=== PATIENT | male | born 1975 | race Caucasian/White ===

== ENCOUNTER 2022-08-17 12:36 | Outpatient (CLI) | payer OTHER, SELFPAY ==
[2022-08-17 10:02] LABS: Albumin* 4.3 g/dL (3.3-5.0); Chloride* 105 mmol/L (96-114); Sodium* 140 mmol/L (135-149)
[2022-08-17 10:03] LABS: Potassium* 4.6 mmol/L (3.6-5.1)
[2022-08-17 10:05] LABS: Alanine Aminotransferase* 28 U/L (4-50); Alkaline Phosphatase* 66 U/L (40-150); Aspartate Amino Transferase* 23 U/L (12-35); Bilirubin Total* 0.5 mg/dL (0.1-1.5); Blood Urea Nitrogen* 23 mg/dL (5-24); Carbon Dioxide* 28 mmol/L (20-32); Creatinine* 0.8 mg/dL (0.5-1.5); Estimated Glomerular Filt Rate 108 ml/min; Glucose* 112 mg/dL (60-115); Total Protein* 6.6 g/dL (6.0-8.3)
[2022-08-17 10:06] LABS: Calcium* 9.5 mg/dL (8.4-10.6); Uric Acid* 9.3 mg/dL (2.2-8.4)
== END 2022-08-17 12:37 | disposition home or self-care (01) ==
PROVIDERS: PCP Surgery; Visit Provider Internal Medicine
DX: E11.9 Type 2 diabetes mellitus without complications (principal); E79.0 Hyperuricemia without signs of inflammatory arthritis and tophaceous disease; E66.01 Morbid (severe) obesity due to excess calories
CPT/HCPCS: 80053; 84550

== ENCOUNTER 2022-11-22 07:48 | Outpatient (CLI) | payer OTHER, SELFPAY ==
[2022-11-22 11:09] LABS: Uric Acid* 7.2 mg/dL (2.2-8.4)
== END 2022-11-22 07:49 | disposition home or self-care (01) ==
LOC: NFLDREF 07:48
PROVIDERS: PCP Internal Medicine; Visit Provider Internal Medicine
DX: E79.0 Hyperuricemia without signs of inflammatory arthritis and tophaceous disease (principal)
CPT/HCPCS: 84550

== ENCOUNTER 2023-05-23 07:40 | Outpatient (CLI) | payer OTHER, SELFPAY | END 2023-05-23 07:41 | disposition home or self-care (01) | LOC: NFLDREF 17:45 | PROVIDERS: PCP Internal Medicine; Referring Provider Internal Medicine; Visit Provider Internal Medicine | DX: E11.9 Type 2 diabetes mellitus without complications (principal); E66.01 Morbid (severe) obesity due to excess calories; I10 Essential (primary) hypertension; E79.0 Hyperuricemia without signs of inflammatory arthritis and tophaceous disease; R20.0 Anesthesia of skin | CPT/HCPCS: 80053; 80061; 82043; 82570; 84550 ==

== ENCOUNTER 2024-06-21 08:15 | Outpatient (RCR) | payer BC, SELFPAY | END 2024-10-19 23:59 | disposition home or self-care (01) | PROVIDERS: PCP Internal Medicine; Visit Provider Physician Assistant Surgical | DX: M54.2 Cervicalgia (principal); M54.12 Radiculopathy, cervical region; Z51.89 Encounter for other specified aftercare | CPT/HCPCS: 97110; 97140; 97162; 97535 ==

== ENCOUNTER 2024-07-03 07:30 | Outpatient (CLI) | payer BC, SELFPAY ==
--- OUTSIDE RECORDS SUMMARY | 2024-07-03 14:23 | XMS_ITS | Clinical Summary ---
Author Organization [facility] Address [place], [place] [address] Care Team Providers Care Store Clerk Checker Name Role Phone MukulAndrewsblanca White Gmitro HANDWRITING EXPERT Unavailable [phone] Unavailable [phone] Leland Cedeno RN Unavailable Allergies No known active allergies Medications Medication Sig Dispensed Refills Start Date End Date Status acetaminophen (TYLENOL EXTRA STRGTH) 500 mg tabletIndications: HNP (herniated nucleus pulposus), lumbar,S/P discectomy for herniated nucleus pulposus,Postopera tive back pain Take 2 tablets by mouth every 8 hours. Max acetaminophen dose: 4000mg in 24 hrs. 60 tablet 12/10/2019 Active omeprazole (PRILOSEC) 20 mg Delayed-Release capsule Take 1 Capsule (20 mg) by mouth once daily before a meal. 03/19/2021 Active medication order composer Vitamin B 12 0 12/29/2021 Active tiZANidine (ZANAFLEX) 4 mg tabletIndications: Chronic low back pain without sciatica, unspecified back pain laterality Take 1 Tablet (4 mg) by mouth every 6 hours if needed for Muscle Spasm. 30 Tablet 2 05/09/2022 Active ibuprofen (ADVIL; MOTRIN) 200 mg tablet Take 1 Tablet (200 mg) by mouth four times daily 6 hours apart. 0 05/09/2022 Active blood-glucose meterIndications:T ype 2 diabetes mellitus without complication, with long-term current use of insulin (HC) Dispense meter, test strips, lancets covered by pt ins. E11.65 NIDDM type II, uncontrolled - Test 4 times/day. Reason: High A1C 1 Each 05/09/2022 Active lancetsIndications :Type 2 diabetes mellitus without complication, with long-term current use of insulin (HC) As directed. Test 4 times per day. 400 Each 3 05/31/2022 Active blood sugar diagnostic (Accu-Chek Guide test strips) stripIndications:T ype 2 diabetes mellitus without complication, with long-term current use of insulin (HC) Dispense item covered by pt ins. E11.9 NIDDM type II - Test 4 times/day. Reason: High A1C 400 Each 3 05/31/2022 Active Eliquis 2.5 mg tabletIndications: Pulmonary embolism, bilateral (HC) TAKE 1 TABLET(2.5 MG) BY MOUTH IN THE MORNING AND IN THE EVENING 120 Tablet 05/24/2023 Active Active Problems Problem Noted Date Diagnosed Date Vitamin D deficiency 12/29/2021 Radiculopathy of lumbar region 10/26/2021 Physical deconditioning 10/14/2021 Eating disorder 10/14/2021 Ascending aorta dilatation 10/05/2021 HTN (hypertension) 10/05/2021 LVH (left ventricular hypertrophy) 10/05/2021 Overview (10/05/2021): Mild 1.3 cm 09/2021 Prediabetes 10/16/2020 History of pulmonary embolism 08/08/2017 Overview (08/08/2017): Bilateral Morbid obesity with BMI of 40.0-44.9, adult 04/2017 Resolved Problems Problem Noted Date Diagnosed Date Resolved Date Weight gain 10/14/2021 10/26/2021 Factor V Leiden mutation 10/05/2021 Urinary retention 12/08/2019 10/26/2021 Frequent headaches 12/08/2019 Lateral epicondylitis of right elbow 08/08/2017 10/26/2021 Immunizations Name Administration Dates Next Due COVID-19 vaccine ([employer] 30mcg/0.3mL) PF, MDV 08/18/2021,01/16/2021,12/26/2020 Influenza, IIV4 08/02/2021,07/09/2020,08/08/2017 Influenza, IIV4 (=>6mos) MDV 07/09/2020 Influenza,CCIIV4 PRESERV FREE 07/09/2020 Tdap 03/19/2021 Family History Medical History Relation Name Comments Rheum arthritis Father Cancer-colon Maternal Grandfather Endometrial cancer Mother Coronary artery disease Other paternal uncle Cancer Paternal Grandfather Coronary artery disease Paternal Grandfather Relation Name Status Comments Father Maternal Grandfather Maternal Grandmother Mother Other paternal uncle Paternal Grandfather Paternal Grandmother Social History Tobacco Use Types Packs/Day Years Used Date Smoking Tobacco: Former Cigarettes Q uit: 2013 Smokeless Tobacco: Never Tobacco Cessation:Counseling Given: Yes Comments:Quit 8 years ago Alcohol Use Standard Drinks/Week Comments No 0 (1 standard drink = 0.6 oz pur e alcohol) PHQ-2 Answer Date Recorded PHQ-2 TOTAL SCORE 0 10/14/2021 Social Connections Answer Date Recorded Frequency of Communication with Friends and Fami ly Not on file 09/24/2021 Financial Resource Strain Answer Date R ecorded Difficulty of Paying Living Expenses Not on file 09/24/2021 Difficulty of Paying Living Expenses Not on file 09/24/2021 Sex and Gender Information Value Date Recorded Sex Assigned at Not on file Gender Identity Not on file Sexual Orientation Not on file Obstetrics History Last Filed Vital Signs Vital Sign Reading Time Taken Comments Blood Pressure 123/90 05/09/2022 1:09 PM CDT Pulse 98 05/09/2022 1:07 PM CDT Temperature 36.6 ??C (97.9 ??F) 10/13/2020 1 0:17 AM LINE APPLIANCE ASSEMBLER Respiratory Rate 16 12/10/2019 8:13 AM CDT Oxygen Saturation 97% 05/09/2022 1:07 PM CDT Inhaled Oxygen Concentration - - Weight 155.9 kg (343 lb 9.6 oz) 05/09/2022 1:07 PM CDT Height 190.5 cm (6' 3) 12/29/2021 10:2 4 AM CDT Body Mass Index 42.95 12/29/2021 10:24 AM CDT Plan of Treatment Health Maintenance Due Date Last Done Comments Depression screening for age 12+ 10/14/2022 10/14/2021, 10/14/2021, 04/08/2021, Additional history exists BMI (ht and wt on same day) for age 18+ 12/29/2022 12/29/2021, 10/14/2021, 08/02/2021, Additional history exists Zoster (shingles) series for age 50+ (1 of 2) 2023 COVID-19 vaccine series ( season) 2024 08/18/2021, 01/16/2021, 12/26/2020 Influenza for age 50-64 06/02/2024 08/02/20 21, 07/09/2020, 07/09/2020, Additional history exists Colonoscopy through age 75 04/08/202604/08, 04/08/2021, 04/08/2021, Additional history exists Lipids for age 45-75 10/26/2026 10/26/2021, 10/09/2020, 03/14/2018 Tetanus booster 03/19/2031 03/19/2021 Tdap Completed 03/19/2021 HIV for age 15-65 Completed 05/09/2022 Hepatitis C screening for age 18-79 Completed 05/09/2022 Pneumococcal series for age 6-64 Aged Out No longer eligible based on patient's age to complete this topic Procedures Procedure Name Priority Date/Time Associated Diagnosis Comments ANTI HIV 1/2 Routine 05/09/2022 2:20 PM CDT Night sweats ANTI HCV Routine 05/09/2022 2:20 PM CDT Need for hepatitis C screening test LIPID PANEL W REFLEX MEASURED LDL Routine 10/26/2021 8:00 AM LINE APPLIANCE ASSEMBLER Morbid obesity with BMI of 40.0-44.9, adult (HC) COLONOSCOPY SCREENING Routine 04/08/2021 10:27 AM CDT History of colon polyps from Last 3 Months or Most Recently Relevant to Health Maintenance Results * ANTI HCV (05/09/2022 2:20 PM CDT) HEPATITIS C ANTIBODY Non-React jhony Non-React jhony 05/09/2022 11:42 PM CDT [facility] Comment:Antibodies to HCV no t detected; does not exclude the possibility of exposure to HCV. Blood BLOOD SPECIMEN / Unknown Venipuncture / Unknown 05/09/2022 2:20 PM CDT 05/09/2022 2:30 PM CDT Woodrow Lu MD SEND OUTS Performing Organization Address City/[facility]/ZIP Co de Phone Number [facility] [address] [place] [address], * ANTI HIV 1/2 (05/09/2022 2:20 PM CDT) HIV-1/HIV-2 ANTIBODY Non-Reacti ve Non-Reacti ve 05/09/2022 11:07 PM CDT [facility] Comment:HIV-1 p24 and HIV-1/ HIV-2 Ab not detected. Blood BLOOD SPECIMEN / Unknown Venipuncture / Unknown 05/09/2022 2:20 PM CDT 05/09/2022 2:30 PM CDT Woordow Lu MD SEND OUTS Performing Organization Address [facility] Co de Phone Number [facility] [address] [place] [address], * (ABNORMAL) LIPID PANEL W REFLEX MEASURED LDL (10/26/2021 8:00 AM LINE APPLIANCE ASSEMBLER) CHOLESTEROL,TOTAL 189 100 - 199 mg/dL 10/26/2021 3:31 PM LINE APPLIANCE ASSEMBLER [facility] TRIGLYCERIDES 133 <150 mg/dL 10/26/2021 3:31 PM LINE APPLIANCE ASSEMBLER [facility] HDL CHOLESTEROL 39(L) >40 mg/dL 3:31 PM LINE APPLIANCE ASSEMBLER [facility] NON-HDL CHOLESTEROL 150(H) <145 mg/dl 10/26/2021 3:31 PM LINE APPLIANCE ASSEMBLER [facility] CHOL/HDL RATIO 4.85(H) <4.50 10/26/2021 3:31 PM LINE APPLIANCE ASSEMBLER [facility] LDL CHOLESTEROL 123 <=130 mg/dL 10/26/2021 3:31 PM LINE APPLIANCE ASSEMBLER [facility] VLDL CHOLESTEROL 27 <=30 mg/dL 10/26/2021 3:31 PM LINE APPLIANCE ASSEMBLER [facility] PROVIDER ORDERED STATUS RANDOM 10/26/2021 3:31 PM LINE APPLIANCE ASSEMBLER [facility] Blood BLOOD SPECIMEN / Unknown Venipuncture / Unknown 10/26/2021 8:00 AM LINE APPLIANCE ASSEMBLER 10/26/2021 8:00 AM LINE APPLIANCE ASSEMBLER Mounika Gilman [facility] CHEMISTRY [facility] [address] [place] [address], [facility] [address] [place] [address], * COLONOSCOPY (04/08/2021 11:17 AM CDT) 04/08/2021 11:1 7 AM CDT Narrative Transcriptions Shlomo Jacinto MD - 04/08/2021 11:56 AM CDT Patient Name: Salomón Caba Procedure Date: 04/08/2021 Gender: Male Date of : 1975 Admit Type: Outpatient Procedure: Colonoscopy Proceduralist: Shlomo Jacinto MD , Lexie Quick, RN(Nurse) Referring MD: Woodrow Lu Indications/Pre-Op Diagnosis: High risk colon cancer surveillance:Personal history of adenoma (10 mm or greater insize), Last colonoscopy: January 2017 Medications: Fentanyl 100 micrograms IV, Midazolam 4 mgIV, The level of sedation administered wasmoderate Procedure Description: The patient had risks, benefits and alternatives explained to andgave informed consent. The patient had a stable cardiopulmonary status and judged an adequate candidate for conscious sedation. The Colon CF-H180AL [id number] was passed through the anus and advancedto the cecum, identified by appendiceal orifice and ileocecal valve. The colonoscopy was performed without difficulty. The patient toleratedthe procedure well. The quality of the bowel preparation was good. The ileocecal valve, appendiceal orifice, and rectum were photographed. Complications: No immediate complications. Estimated Blood Loss & Specimen: Estimated blood loss: none. Specimen collected - Yes and sent to Laboratory Findings: The perianal and digital rectal examinations were normal. The entire examined colon appeared normal on direct and retroflexion views. Impressions/Post-Op Diagnosis: - The entire examined colon is normal on direct and retroflexionviews. - No specimens collected. Recommendation: - Patient has a contact number available for emergencies. The signsand symptoms of potential delayed complications were discussed with the patient. Return to normal activities tomorrow. Written discharge instructions were provided to the patient. - Resume previous diet. - Continue present medications. - Repeat colonoscopy in 5 years for surveillance. Moderate Sedation: Moderate (conscious) sedation was administered by the endoscopy nurse and supervised by the endoscopist. The following parameters were monitored: oxygen saturation, heart rate, respiratory rate, blood pressure, adequacy of pulmonary ventilation and reponse to care. Please refer to the patient's medical record flowsheets and nursing notes for moderate sedation details. Total physician intraservice time was 13 minutes. Shlomo Jacinto MD 04/08/2021 11:56:12 AM This report has been signed electronically. Note Initiated On: 04/08/2021 11:17 AM Procedure Code(s): --- Professional --- 75208, Colonoscopy, flexible; diagnostic, including collection of specimen(s) bybrushing or washing, when performed (separateprocedure) Diagnosis Code(s): --- Professional --- Z86.010, Personal history of colonicpolyps CPT copyright 2020 [employer]. All rights reserved. The codes documented in this report are preliminary and upon him coder reviewmay be revised to meet current compliance requirements. Scope In: 11:39:54 AM Scope Withdrawal Time 0 hours 6 minutes 22 seconds Scope Out: 11:50:26 AM Shlomo Jacinto MD PROCEDURE ORD from Last 3 Months or Most Recently Relevant to Health Maintenance Advance Directives * Full Code (Latest Code Status on File) Date Activated Date Inactivated Comments 12/06/2019 10:30 PM 12/10/2019 5:54 PM Question Answer Comments Code Status Discussion: Discussed Care Teams Store Clerk Checker Relationship Specialty Start Date End Date Mounika Gilman Christian, HANDWRITING EXPERT [address] [place], [place] [id number] Clinical Nurse Specialist Clinical Nurse Specialist 10/14/21 Lexie Rivera, ALTA [address] [place], [place] [id number] Registered Dietitian Employee Communications Manager 10/14/21 Leland Cedeno, RN [address] [place], [place] [address] Registered Nurse Registered Nurse 10/14/21
== END 2024-07-03 07:31 | disposition home or self-care (01) ==
LOC: NFLDREF 14:21
PROVIDERS: PCP Internal Medicine; Referring Provider Internal Medicine; Visit Provider Internal Medicine
DX: E11.9 Type 2 diabetes mellitus without complications (principal); E79.0 Hyperuricemia without signs of inflammatory arthritis and tophaceous disease; I10 Essential (primary) hypertension; E66.01 Morbid (severe) obesity due to excess calories
CPT/HCPCS: 80053; 80061; 82043; 82570; 84550

== ENCOUNTER 2024-07-26 08:47 | Outpatient (CLI) | payer BC, SELFPAY ==
--- OUTSIDE RECORDS SUMMARY | 2024-07-26 08:49 | XMS_ITS | Clinical Summary ---
Author Organization [facility] Address [place], [place] [address] Care Team Providers Care Director Industrial Nursing Name Role Phone MukulAndrewsblanca White Gmitro OFFICE NURSE Unavailable [phone] Unavailable [phone] Leland Cedeno RN Unavailable Allergies No known [...] Name Administration Dates Next Due COVID-19 vaccine ([employer] 30mcg/0.3mL) PF, MDV 08/18/2021,01/16/2021,12/26/2020 Influenza, IIV4 08/02/2021,07/09/2020,08/08/2017 [...] ??C (97.9 ??F) 10/13/2020 1 0:17 AM HEARING INSTRUMENT SPECIALIST Respiratory Rate 16 12/10/2019 8:13 AM CDT Oxygen Saturation 97% 05/09/2022 1:07 PM CDT Inhaled Oxygen Concentration - - Weight 155.9 kg (343 lb 9.6 oz) 05/09/2022 1:07 PM CDT Height 190.5 cm (6' 3) 12/29/2021 10:2 4 AM CDT Body Mass Index 42.95 12/29/2021 10:24 AM CDT Plan of Treatment Upcoming Encounters Date Type Department Care Team (Late st Contact Info) Description 07/26/2024 9:00 AM CDT Ancillary Procedure [facility] [address] [place] [address] Health Maintenance Due Date Last Done Comments Depression screening for age 12+ 10/14/2022 10/14/2021, 10/14/2021, 04/08/2021, Additional history exists BMI (ht and wt on same day) for age 18+ 12/29/2022 12/29/2021, 10/14/2021, 08/02/2021, Additional history exists Zoster (shingles) series for age 50+ (1 of 2) 2023 COVID-19 vaccine series ( season) 2024 08/18/2021, 01/16/2021, 12/26/2020 Influenza for age 50-64 06/02/2024 08/02/20, 07/09/2020, 07/09/2020, Additional history exists Colonoscopy through [...] REFLEX MEASURED LDL Routine 10/26/2021 8:00 AM HEARING INSTRUMENT SPECIALIST Morbid obesity with BMI of 40.0-44.9, adult (HC) COLONOSCOPY SCREENING Routine 04/08/2021 10:27 AM CDT History of colon polyps from Last 3 Months or Most Recently Relevant to Health Maintenance Results * ANTI HCV (05/09/2022 2:20 PM CDT) HEPATITIS C ANTIBODY Non-React jhony Non-React jhony 05/09/2022 11:42 PM CDT [facility] Comment:Antibodies to HCV no t detected; does not exclude the possibility of exposure to HCV. Blood BLOOD SPECIMEN / Unknown Venipuncture / Unknown 05/09/2022 2:20 PM CDT 05/09/2022 2:30 PM CDT Woodrow Lu MD SEND OUTS Performing Organization Address City/[facility]/ZIP Co de Phone Number [facility] [address] [place] [address], * ANTI HIV 1/2 (05/09/2022 2:20 PM CDT) Pathologist [facility] HIV-1/HIV-2 ANTIBODY Non-Reacti ve Non-Reacti ve 05/09/2022 11:07 PM CDT [facility] Comment:HIV-1 p24 and HIV-1/ HIV-2 Ab not detected. Blood BLOOD SPECIMEN / Unknown Venipuncture / Unknown 05/09/2022 2:20 PM CDT 05/09/2022 2:30 PM CDT Woodrow Lu MD SEND OUTS Performing Organization Address [facility] Co de Phone Number [facility] [address] [place] [address], * (ABNORMAL) LIPID PANEL W REFLEX MEASURED LDL (10/26/2021 8:00 AM HEARING INSTRUMENT SPECIALIST) Pathologist [facility] CHOLESTEROL,TOTAL 189 100 - 199 mg/dL 10/26/2021 3:31 PM HEARING INSTRUMENT SPECIALIST [facility] TRIGLYCERIDES 133 <150 mg/dL 10/26/2021 3:31 PM HEARING INSTRUMENT SPECIALIST [facility] HDL CHOLESTEROL 39(L) >40 mg/dL 3:31 PM HEARING INSTRUMENT SPECIALIST [facility] NON-HDL CHOLESTEROL 150(H) <145 mg/dl 10/26/2021 3:31 PM HEARING INSTRUMENT SPECIALIST [facility] CHOL/HDL RATIO 4.85(H) <4.50 10/26/2021 3:31 PM HEARING INSTRUMENT SPECIALIST [facility] LDL CHOLESTEROL 123 <=130 mg/dL 10/26/2021 3:31 PM HEARING INSTRUMENT SPECIALIST [facility] VLDL CHOLESTEROL 27 <=30 mg/dL 10/26/2021 3:31 PM HEARING INSTRUMENT SPECIALIST [employer] [facility] PROVIDER ORDERED STATUS RANDOM 10/26/2021 3:31 PM HEARING INSTRUMENT SPECIALIST [facility] Blood BLOOD SPECIMEN / Unknown Venipuncture / Unknown 10/26/2021 8:00 AM HEARING INSTRUMENT SPECIALIST 10/26/2021 8:00 AM HEARING INSTRUMENT SPECIALIST Mounika Gilman OFFICE NURSE CHEMISTRY [facility] [address] [place] [address], [facility] [address] [place] [address], * COLONOSCOPY (04/08/2021 11:17 AM CDT) 04/08/2021 [...] candidate for conscious sedation. The Colon CF-H180AL [id number] was passed through the anus and advancedto [...] 11:17 AM Procedure Code(s): --- Professional --- 69685, Colonoscopy, flexible; diagnostic, including collection of specimen(s) bybrushing or washing, when performed (separateprocedure) Diagnosis Code(s): --- Professional --- Z86.010, Personal history of colonicpolyps CPT copyright 2020 [employer]. All rights reserved. The codes documented in this report are preliminary and upon hims coder reviewmay be revised to meet current [...] Comments Code Status Discussion: Discussed Care Teams Director Industrial Nursing Relationship Specialty Start Date End Date GilmanMounika mullen Cindy Gonzales, OFFICE NURSE [address] [facility] [place] [address] Clinical Nurse Specialist Clinical Nurse Specialist 10/14/[address] [facility] [place] [address] Registered Dietitian Photographic Enlarger Operator 10/14/21 Leland Cedeno, RN [address] [facility] [place] [address] Registered Nurse Registered Nurse 10/14/21
[2024-07-26] MEDS: PERFLUTREN LIPID MICROSPHERES 2 ML VIAL IVP (09:55)
--- NOTE | 2024-07-26 10:20 | PC.NURSE ---
Definirt given per financial services technician instruction. precision lens technician started IV and stated she will remove it.
== END 2024-07-26 08:48 | disposition home or self-care (01) ==
PROVIDERS: PCP Internal Medicine; Visit Provider Internal Medicine
DX: I77.810 Thoracic aortic ectasia (principal)
CPT/HCPCS: 93306

== ENCOUNTER 2025-07-08 07:35 | Outpatient (CLI) | payer BC, SELFPAY | END 2025-07-08 07:36 | disposition home or self-care (01) | LOC: NFLDREF 07-10 09:43 | PROVIDERS: PCP Internal Medicine; Referring Provider Internal Medicine; Visit Provider Internal Medicine | DX: E11.9 Type 2 diabetes mellitus without complications (principal); E79.0 Hyperuricemia without signs of inflammatory arthritis and tophaceous disease; I10 Essential (primary) hypertension; E66.9 Obesity, unspecified; Z12.5 Encounter for screening for malignant neoplasm of prostate | CPT/HCPCS: 80053; 80061; 82043; 82570; 84550; G0103 ==

== ENCOUNTER 2025-07-08 14:17 | Outpatient (CLI) | payer BC, SELFPAY ==
--- NOTE | 2025-07-08 14:30 | CRLHL7_ITS ---
For Patients: As a result of the Century Cures Act, medical imaging exams and procedure reports are released immediately into your electronic medical record. You may view this report before your referring provider. If you have questions, please contact your health care provider. Indication: Cervical radiculopathy Technique: Multiplanar, multisequence MRI of the cervical spine obtained without contrast. Comparison: None. Findings: The normal cervical lordosis is preserved. Grade 1 retrolisthesis and minor mixed Modic type 1/Modic type 2 opposing endplate changes at C5-6. vertebral body heights are within normal limits. No evidence of acute fracture. No suspicious bone marrow lesion. Included posterior fossa structures are unremarkable. Visualized spinal cord appears normal in course and caliber. No convincing cord signal abnormality. No suspicious findings in the prevertebral or paraspinal soft tissues. C2-C3: Mild right uncovertebral arthropathy. No neural foraminal or spinal canal stenosis. C3-C4: Mild uncovertebral arthropathy. Mild bilateral neural foraminal narrowing. No spinal canal stenosis. C4-C5: Small central protrusion, uncovertebral arthropathy. Moderate bilateral neural foraminal stenosis. No spinal canal stenosis. C5-C6: Posterior disc-osteophyte complex, uncovertebral arthropathy. Severe bilateral neural foraminal stenosis. Moderately severe spinal canal stenosis. C6-C7: Shallow posterior disc bulge. No right, mild left neural foraminal narrowing. No spinal canal stenosis. C7-T1: Small left central protrusion, mild facet arthropathy. No left, mild right neural foraminal narrowing. No spinal canal stenosis. Impression: 1. Cervical spondylosis as detailed. 2. At C4-C5, moderate bilateral neural foraminal stenosis. 3. At C5-C6, severe bilateral neural foraminal stenosis with C6 nerve root impingement, and moderately severe spinal canal stenosis. 4. No cord compression or cord signal abnormality. Dictated by Eden Méndez MD @ 07/09/2025 5:34:38 PM (Electronically Signed)
== END 2025-07-08 14:18 | disposition home or self-care (01) ==
LOC: MRI 14:18
PROVIDERS: PCP Internal Medicine; Visit Provider Family Medicine
DX: M54.12 Radiculopathy, cervical region (principal); M47.896 Other spondylosis, lumbar region; M48.02 Spinal stenosis, cervical region; E11.9 Type 2 diabetes mellitus without complications; E79.0 Hyperuricemia without signs of inflammatory arthritis and tophaceous disease; I10 Essential (primary) hypertension
CPT/HCPCS: 72141; 80053; 80061; 82043; 82570; 84550; G0103